=== PATIENT | female | born 1935 | race Caucasian/White ===

== ENCOUNTER → 2016-12-24 | Outpatient (CLI) | payer MEDICARE ==
[~2016-12-24] MED LIST: AMLO10TA2 PO; ASPI325T4 PO; ATOR80TA PO; BUPR100T8 PO; CALC-72 PO; CHOL40002 PO; CLOP75TA PO; GLUC1TAB27 PO; LEVO112T4 PO; LOSA100T6 PO; MULT-257 PO; NIAC500C3 PO; OMEG1CAP23 PO; POLY17PO5 PO
== END | disposition home or self-care (01) ==
LOC: CVU 13:43
PROVIDERS: ATTEND Surgery
DX: I65.23 Occlusion and stenosis of bilateral carotid arteries (principal); I10 Essential (primary) hypertension; Z85.9 Personal history of malignant neoplasm, unspecified
CPT/HCPCS: 93880

== ENCOUNTER 2017-01-20 08:12 | Day surgery (SDC) | payer MEDICARE ==
[~2017-01-20] VITALS: Ht 162.6 cm; Wt 88.2 kg
[2017-01-20 09:20] VITALS: BP 135/84
[2017-01-20] MEDS ORDERED: SODIUM CHLORIDE 0.9% 1,000 ML IV SCH (09:21)
[2017-01-20] MEDS ORDERED: CEFAZOLIN 1,000 MG IM ONE (09:30)
[2017-01-20] MEDS ORDERED: FENTANYL PF 100 MCG/2ML ONE (09:43)
[2017-01-20] MEDS ORDERED: NALOXONE 1 MG/ML, 2ML ONE (09:43)
[2017-01-20] MEDS ORDERED: PROTAMINE SULFATE 10 MG/ML, 25ML ONE (09:43)
[2017-01-20] MEDS ORDERED: MIDAZOLAM 1 MG/ML, 5ML ONE (09:43)
[2017-01-20] MEDS ORDERED: NITROGLYCERIN 5 MG/ML, 10ML ONE (09:43)
[2017-01-20] MEDS ORDERED: HEPARIN 1,000 UNITS/ML, 10ML ONE (09:43)
[2017-01-20] MEDS ORDERED: FLUMAZENIL 0.1 MG/1 ML, 5ML ONE (09:43)
[2017-01-20 10:00] LABS: BLOOD UREA NITROGEN 15 mg/dL (7-18)
[2017-01-20] MEDS ORDERED: CEFAZOLIN PMX 2GM/50ML 50 ML IVPB ONE (10:00)
[2017-01-20] MEDS ORDERED: PLEASE ENTER HEIGHT AND WEIGHT MC SCH (10:00)
[2017-01-20] MEDS ORDERED: LIDOCAINE 2%, 20ML ONE (10:04)
[2017-01-20] MEDS ORDERED: VISIPAQUE 270 MG/ML, 150ML BOTTLE ONE (11:00)
== END 2017-01-20 13:50 ==
LOC: OUT 08:12
PROVIDERS: ATTEND Surgery
DX: I73.9 Peripheral vascular disease, unspecified (principal); I70.201 Unspecified atherosclerosis of native arteries of extremities, right leg; I12.9 Hypertensive chronic kidney disease with stage 1 through stage 4 chronic kidney disease, or unspecified chronic kidney disease; N18.9 Chronic kidney disease, unspecified; E78.5 Hyperlipidemia, unspecified; E03.9 Hypothyroidism, unspecified; I25.10 Atherosclerotic heart disease of native coronary artery without angina pectoris; Z86.73 Personal history of transient ischemic attack (TIA), and cerebral infarction without residual deficits; Z90.49 Acquired absence of other specified parts of digestive tract; Z98.890 Other specified postprocedural states; Z87.891 Personal history of nicotine dependence
CPT/HCPCS: 36200; 36415; 75625; 75716; 80048; 99156; 99157; C1751; C1760; C1769; C1894; J0690; J1644; J2250; J3010; J3490; J7030; Q9966; 75630; J2720; G0269; J2310

== ENCOUNTER 2017-04-17 16:47 | Inpatient (IN) | payer MEDICARE ==
[~2017-04-17] VITALS: Ht 162.6 cm; Wt 91.0 kg
[~2017-04-17 16:47] MED LIST changes: +ASPI325T17 PO; -ASPI325T4 PO; +CALC-534 PO; -CALC-72 PO
[2017-04-17] MEDS ORDERED: NITROGLYCERIN OINT 2%, 1GM TP ONE ×2 (17:29→17:30)
[2017-04-17 17:42] LABS: HEMATOCRIT 36.5 % (34.6-47.8); HEMOGLOBIN 12.4 g/dL (11.7-16.4); WHITE BLOOD COUNT 6.8 x10^3/uL (3.4-10)
[2017-04-17 17:54] LABS: ASPARTATE AMINO TRANSFERASE 23 U/L (15-37); BLOOD UREA NITROGEN 14 mg/dL (7-18)
[2017-04-17 18:00] LABS: IS PT STATUS REG ER OR PRE ER? YES
[2017-04-17] MEDS ORDERED: SODIUM CHLORIDE FLUSH 10ML SYR IVF ONE (18:30)
[2017-04-17] MEDS ORDERED: CALCIUM PO (18:38)
[2017-04-17] MEDS ORDERED: ACYC-113 PO (18:38)
[2017-04-17] MEDS ORDERED: ACET650S21 PO (18:38)
[2017-04-17] MEDS ORDERED: NITR0.4T28 SL (18:38)
[2017-04-17] MEDS ORDERED: LINA290C PO (18:58)
[2017-04-17] MEDS ORDERED: LACT10SO28 PO (18:58)
[2017-04-17] MEDS ORDERED: AZITHROMYCIN 500 MG TABLET PO ONE (20:30)
[2017-04-17] MEDS ORDERED: ACETAMINOPHEN 325 MG TABLET PO PRN (20:30)
[2017-04-17] MEDS ORDERED: NITROGLYCERIN 0.4 MG/SPRAY SL PRN (20:30)
[2017-04-17] MEDS ORDERED: morphine SULFATE 10 MG/ML, 1ML IVPush PRN (20:30)
[2017-04-17] MEDS ORDERED: ENALAPRILAT 1.25 MG/ML, 2ML IVPush PRN (20:30)
[2017-04-17] MEDS ORDERED: TEMPLATE NON-FORMULARY MED. (Gluc Su/Chondro Su A/Vit C/Mn** (Glucosamine Chondroitin Tab PO SCH (21:00)
[2017-04-17] MEDS ORDERED: POTASSIUM CHLORIDE 20 MEQ TAB.ER.PRT PO ONE (23:00)
[2017-04-17] MEDS: CALCIUM CARBONATE 500 MG TABLET PO SCH (23:16)
[2017-04-17] MEDS: AMLODIPINE 5 MG TABLET PO SCH (23:16)
[2017-04-17] MEDS: ATORVASTATIN 80 MG TABLET PO SCH (23:16)
[2017-04-17] MEDS: OMEGA-3/FISH OIL CAPSULE PO SCH (23:16)
[2017-04-17] MEDS: ENOXAPARIN 40 MG/0.4 ML SQ SCH (23:17)
[2017-04-17] MEDS ORDERED: ALBUTEROL/IPRATROPIUM 2.5MG/0.5MG, 3 ML NPPB PRN (23:30)
[2017-04-17 23:41] LABS: IS PT STATUS REG ER OR PRE ER? NO
[2017-04-18 03:00] VITALS: BP 99/64
[2017-04-18 04:45] VITALS: BP 99/64
[2017-04-18] MEDS: LEVOTHYROXINE 112 MCG TABLET PO SCH (04:51)
[2017-04-18 05:02] LABS: HEMATOCRIT 33.4 % (34.6-47.8); HEMOGLOBIN 11.4 g/dL (11.7-16.4); WHITE BLOOD COUNT 7.7 x10^3/uL (3.4-10)
[2017-04-18 05:14] LABS: BLOOD UREA NITROGEN 14 mg/dL (7-18)
[2017-04-18 05:18] LABS: IS PT STATUS REG ER OR PRE ER? NO
[2017-04-18 06:33] VITALS: BP 119/73
[2017-04-18] MEDS: ASPIRIN 325 MG TABLET PO SCH (08:27)
[2017-04-18] MEDS: NIACIN 500 MG TABLET.ER PO SCH (08:28)
[2017-04-18] MEDS: MULTIVITAMIN 1 TABLET PO SCH (08:28)
[2017-04-18] MEDS: CHOLECALCIFEROL 1,000 UNIT TABLET PO SCH (08:28)
[2017-04-18] MEDS: LOSARTAN 50MG TABLET PO SCH (08:28)
[2017-04-18] MEDS: LACTULOSE 10 GM/15 ML UDC PO SCH (08:28)
[2017-04-18] MEDS: OMEGA-3/FISH OIL CAPSULE PO SCH ×2 (08:28→20:49)
[2017-04-18] MEDS: FUROSEMIDE 20 MG/2 ML IV SCH (08:29)
[2017-04-18] MEDS: AZITHROMYCIN 250 MG TABLET PO SCH (08:29)
[2017-04-18] MEDS: CLOPIDOGREL 75 MG TABLET PO SCH (08:29)
[2017-04-18] MEDS: TEMPLATE NON-FORMULARY MED. (Linaclotide** (Linzess**) 290 MCG) HOMEMEDPO SCH (09:00)
[2017-04-18 13:48] VITALS: BP 92/55
[2017-04-18 20:36] VITALS: BP 148/75
[2017-04-18] MEDS: ATORVASTATIN 80 MG TABLET PO SCH (20:49)
[2017-04-18] MEDS: CALCIUM CARBONATE 500 MG TABLET PO SCH (20:49)
[2017-04-18] MEDS: AMLODIPINE 5 MG TABLET PO SCH (20:50)
[2017-04-18] MEDS: ENOXAPARIN 40 MG/0.4 ML SQ SCH (20:54)
[2017-04-19 02:21] VITALS: BP 138/70
[2017-04-19 04:57] LABS: BLOOD UREA NITROGEN 12 mg/dL (7-18)
[2017-04-19] MEDS: LEVOTHYROXINE 112 MCG TABLET PO SCH (05:52)
[2017-04-19 06:45] VITALS: BP 121/64
[2017-04-19] MEDS ORDERED: REGADENOSON 0.4 MG/5 ML SYRINGE ONE (08:00)
[2017-04-19] MEDS: TEMPLATE NON-FORMULARY MED. (Linaclotide** (Linzess**) 290 MCG) HOMEMEDPO SCH (09:00)
[2017-04-19] MEDS: LOSARTAN 50MG TABLET PO SCH (11:44)
[2017-04-19] MEDS: NIACIN 500 MG TABLET.ER PO SCH (11:44)
[2017-04-19] MEDS: FUROSEMIDE 20 MG/2 ML IV SCH (11:44)
[2017-04-19] MEDS: ASPIRIN 325 MG TABLET PO SCH (11:44)
[2017-04-19] MEDS: OMEGA-3/FISH OIL CAPSULE PO SCH (11:44)
[2017-04-19] MEDS: MULTIVITAMIN 1 TABLET PO SCH (11:45)
[2017-04-19] MEDS: CLOPIDOGREL 75 MG TABLET PO SCH (11:45)
[2017-04-19] MEDS: AZITHROMYCIN 250 MG TABLET PO SCH (11:45)
[2017-04-19] MEDS: LACTULOSE 10 GM/15 ML UDC PO SCH (11:49)
[2017-04-19] MEDS: CHOLECALCIFEROL 1,000 UNIT TABLET PO SCH (11:49)
[2017-04-19 12:49] VITALS: BP 101/63
[2017-04-19] MEDS ORDERED: PRED20TA PO (15:39)
[2017-04-19] MEDS ORDERED: AZIT250T89 PO (15:39)
== END 2017-04-19 18:16 | disposition home or self-care (01) | DRG 291 ==
LOC: ED 17:24 → EDIP 18:32 → 5SO 20:22
PROVIDERS: ADMIT Student in an Organized Health Care Education/Training Program; ATTEND Student in an Organized Health Care Education/Training Program
DX: I11.0 Hypertensive heart disease with heart failure (principal); J18.9 Pneumonia, unspecified organism; E43 Unspecified severe protein-calorie malnutrition; Z99.81 Dependence on supplemental oxygen; I45.10 Unspecified right bundle-branch block; J44.0 Chronic obstructive pulmonary disease with (acute) lower respiratory infection; I50.9 Heart failure, unspecified; I25.110 Atherosclerotic heart disease of native coronary artery with unstable angina pectoris; E03.9 Hypothyroidism, unspecified; E78.5 Hyperlipidemia, unspecified; E87.6 Hypokalemia; I25.2 Old myocardial infarction; K64.9 Unspecified hemorrhoids; M81.0 Age-related osteoporosis without current pathological fracture; G89.29 Other chronic pain; M54.5 Low back pain; K59.09 Other constipation; Z20.1 Contact with and (suspected) exposure to tuberculosis; R09.02 Hypoxemia; Z66 Do not resuscitate; Z82.0 Family history of epilepsy and other diseases of the nervous system; Z82.3 Family history of stroke; Z83.3 Family history of diabetes mellitus; Z85.038 Personal history of other malignant neoplasm of large intestine; Z86.73 Personal history of transient ischemic attack (TIA), and cerebral infarction without residual deficits; Z87.01 Personal history of pneumonia (recurrent); Z87.891 Personal history of nicotine dependence; Z90.710 Acquired absence of both cervix and uterus; Z95.5 Presence of coronary angioplasty implant and graft; Z98.1 Arthrodesis status; Z90.49 Acquired absence of other specified parts of digestive tract; Z79.899 Other long term (current) drug therapy
CPT/HCPCS: 36415; 71010; 78452; 80048; 80053; 80061; 83605; 83735; 83880; 84443; 84484; 85025; 87040; 93005; 93017; 93306; J1650; J2785; A9502; J1940; J7512